=== PATIENT | female | born 1990 | race Caucasian/White ===

== ENCOUNTER 2020-06-25 17:48 | Emergency (ER) | payer BC ==
--- NOTE | 2020-06-25 18:17 | EDM.PDOC ---
ED HPI GENERAL MEDICAL PROBLEM - General Chief Complaint: Chest Pain Stated Complaint: CHEST PAIN Time Seen by Provider: 06/25/20 18:01 Source of Information: Reports: Patient, RN Notes Reviewed History Limitations: Reports: No Limitations - History of Present Illness INITIAL COMMENTS - FREE TEXT/NARRATIVE: Patient is a 30-year-old female who presents to the ED for her left-sided chest discomfort. She notes she has had pain in her left chest for the past 3 weeks. She has been to see her provider, Dr. Su at the [facility] 2 times for this. She states she was referred to PT, nothing much else was done of this. She has not had a EKG or any sort of imaging studies done. She does have a remote history of COVID-19 in April 2020, but is feeling well from this, and states it was a mild case. She does state that the chest pain seems to be worse today, and it radiates down her left arm. She states this is kind of a dull ache all the time with some stinging/sharp sensations. She notes that it seems to be worse in the evening, she is not noted anything that really makes this better. She has tried 1000 mg of Tylenol and 200 mg ibuprofen from time to time but nothing seems to really make it better. She states that the medications last for about 1/2-hour and then the pain is back. She states that movement does not seem to make the pain worse, nor does deep breathing. She does not think the PT is helping much either. Patient denies any other sick-like symptoms, fever/chills, cough/shortness of breath, nausea/vomiting/diarrhea. The patient further denies any early cardiac demise in her immediate family members. She states that she is in fairly decent health herself. Left Chest Pain Score (Numeric/FACES): 8 - Related Data Allergies Allergy/AdvReac Type Severity Reaction Status Date / Time No Known Allergies Allergy Verified 06/25/20 17:58 Home Meds: Home Meds . 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 ED EXAM, GENERAL - Physical Exam Exam: See Below Exam Limited By: No Limitations General Appearance: Alert, WD/WN, No Apparent Distress Respiratory/Chest: No Respiratory Distress, Lungs Clear, Normal Breath Sounds, No Accessory Muscle Use, Other (She does state that she has some mild tenderness to left chest around 3-4th rib; states this does somewhat reproduce the sensation she felt.) Cardiovascular: Normal Peripheral Pulses, Regular Rate, Rhythm, No Edema, No Murmur Extremities: Normal Inspection, Normal Range of Motion, Normal Capillary Refill Neurological: Alert, Oriented, Normal Cognition, No Motor/Sensory Deficits Psychiatric: Normal Affect, Normal Mood Skin Exam: Warm, Dry, Intact, Normal Color, No Rash #1 Interpretation EKG Date: 06/25/20 Time: 18:43 Rhythm: NSR Rate (Beats/Min): 97 [place]: Normal P-Wave: Present QRS: Normal ST-T: Normal QT: Normal Comparison: NA - No Prior EKG EKG Interpretation Comments: No obvious ischemia or acute ST changes noted, reviewed by myself and Dr. Roa. Course - Vital Signs Last Recorded V/S: Last Vital Signs Temp 98.0 F 06/25/20 17:56 Pulse 114 H 06/25/20 17:56 Resp 19 06/25/20 17:56 BP 139/84 06/25/20 17:56 Pulse Ox 100 06/25/20 17:56 - Orders/Labs/Meds Orders: Active Orders 24 hr Category Date Time Status EKG Documentation Completion [RC] STAT Care 06/25/20 18:09 Ordered Chest 2V [CR] Stat Exams 06/25/20 18:09 Ordered CBC WITH AUTO DIFF [HEME] Stat Lab 06/25/20 18:09 Ordered Potassium Chloride [Klor-Con M20] Med 06/25/20 19:05 Once 40 meq PO ONETIME ONE Medication Orders Potassium Chloride (Klor-Con M20) 40 meq PO ONETIME ONE Stop: 06/25/20 19:06 Labs: Laboratory Tests 06/25/20 06/25/20 Range/Units 18:27 18:27 WBC 10.80 H (3.98-10.04) K/mm3 RBC 4.94 (3.98-5.22) M/mm3 Hgb 12.5 (11.2-15.7) gm/dl Hct 39.7 (34.1-44.9) % MCV 80.4 (79.4-94.8) fl MCH 25.3 L (25.6-32.2) pg MCHC 31.5 L (32.2-35.5) g/dl RDW Std Deviation 43.1 (36.4-46.3) fL Plt Count 357 (182-369) K/mm3 MPV 9.6 (9.4-12.3) fl Neut % (Auto) 67.6 (34.0-71.1) % Lymph % (Auto) 22.4 (19.3-51.7) % [place] % (Auto) 7.9 (4.7-12.5) % Eos % (Auto) 1.4 (0.7-5.8) Baso % (Auto) 0.5 (0.1-1.2) % Neut # (Auto) 7.31 H (1.56-6.13) K/mm3 Lymph # (Auto) 2.42 (1.18-3.74) K/mm3 [place] # (Auto) 0.85 H (0.24-0.36) K/mm3 Eos # (Auto) 0.15 (0.04-0.36) K/mm3 Baso # (Auto) 0.05 (0.01-0.08) K/mm3 Sodium 138 (136-145) mEq/L Potassium 3.0 L (3.5-5.1) mEq/L Chloride 102 (98-107) mEq/L Carbon Dioxide 21 (21-32) mEq/L Anion Gap 18.0 H (5-15) BUN 7 (7-18) mg/dL Creatinine 0.9 (0.55-1.02) mg/dL Est Cr Clr Drug Dosing 74.23 mL/min Estimated GFR (MDRD) > 60 (>60) mL/min BUN/Creatinine Ratio 7.8 L (14-18) Glucose 115 H (74-106) mg/dL Calcium 8.9 (8.5-10.1) mg/dL Magnesium 1.9 (1.8-2.4) mg/dl Total Bilirubin 0.6 (0.2-1.0) mg/dL AST 10 L (15-37) U/L ALT 26 (14-59) U/L Alkaline Phosphatase 64 (46-116) U/L Troponin I < 0.017 (0.00-0.056) ng/mL Total Protein 8.1 (6.4-8.2) g/dl Albumin 3.4 (3.4-5.0) g/dl Globulin 4.7 gm/dL Albumin/Globulin Ratio 0.7 L (1-2) Meds: Medications Generic Name Dose Route Start Last Admin Trade Name Freq PRN Reason Stop Dose Admin Potassium Chloride 40 meq 06/25/20 19:05 Klor-Con M20 PO 06/25/20 19:06 ONETIME ONE - Re-Assessments/Exams Free Text/Narrative Re-Assessment/Exam: 06/25/20 18:16 Patient presents to the ED for evaluation of her chest pain. Have ordered EKG, chest x-ray, basic labs for evaluation. I do believe this could be costochondritis in nature. 06/25/20 19:06 EKG is done and demonstrates no obvious ST change or acute abnormalities. Patient's labs have been obtained and these are fairly unremarkable, troponin is undetectably low. CBC is good, metabolic panel shows a potassium level of 3.0. She will get 40 mEq p.o. for this. Chest x-ray was unremarkable. Will discharge home with general recommendations. Departure - Departure Time of Disposition: 19:07 Disposition: Home, Self-Care 01 Condition: Good Clinical Impression: Costochondral chest pain Instructions: Nonspecific Chest Pain, Adult, [id number] Referrals: Cassy Su MD [Primary Care Provider] - Forms: ED Department Discharge Additional Instructions: You were evaluated in the ER today for your chest pain. You had an EKG, chest x-ray, and labs taken today. All of which showed no sign of acute heart attack or myocardial infarction. Chest x-ray is also negative for any sort of acute abnormalities. Your potassium level was mildly low at 3.0, you were given a one-time dose of oral potassium in the ER for supplementation. Please go home and increase your dietary intake of this, foods such as bananas, potatoes, are high in potassium. Your chest pain is most likely due to costochondritis which is an inflammation of the nerve/rib lining. Management of this is to treat with at least 600 mg ibuprofen every 6 hours over the next week or so and see if this does not help improve your symptoms. Please return to the ER at any time if your symptoms change or worsen. Sepsis Event Note (ED) - Evaluation Sepsis Screening Result: No Definite Risk - Focused Exam Vital Signs: Vital Signs Temp Pulse Resp BP Pulse Ox 06/25/20 17:56 98.0 F 114 H 19 139/84 100 - My Orders Last 24 Hours: My Active Orders 06/25/20 18:09 EKG Documentation Completion [RC] STAT Chest 2V [CR] Stat CBC WITH AUTO DIFF [HEME] Stat 06/25/20 19:05 Potassium Chloride [Klor-Con M20] 40 meq PO ONETIME ONE - Assessment/Plan Last 24 Hours: My Active Orders 06/25/20 18:09 EKG Documentation Completion [RC] STAT Chest 2V [CR] Stat CBC WITH AUTO DIFF [HEME] Stat 06/25/20 19:05 Potassium Chloride [Klor-Con M20] 40 meq PO ONETIME ONE
[2020-06-25] MEDS ORDERED: Potassium Chloride 20 MEQ Tab.ER PO ONE (19:05)
--- NOTE | 2020-06-26 09:15 | CR ---
PROCEDURE INFORMATION: Exam: XR Chest, 2 Views Exam date and time: 06/25/2020 6:50 PM Age: 30 years old Clinical indication: Chest pain TECHNIQUE: Imaging protocol: XR of the chest Views: 2 views. COMPARISON: No relevant prior studies available. FINDINGS: Lungs: Unremarkable. No consolidation. Pleural space: Unremarkable. No pleural effusion. No pneumothorax. Heart/Mediastinum: Unremarkable. No cardiomegaly. Bones/joints: Unremarkable. IMPRESSION: No acute findings. Thank you for allowing us to participate in the care of your patient. Dictated and Authenticated by: Antony Peng MD 06/25/2020 8:03 PM Central Time ([place] & [place]) KERRY
== END 2020-06-25 19:27 | disposition home or self-care (01) ==
LOC: JD.ED 17:48
DX: R07.1 Chest pain on breathing (principal); J45.909 Unspecified asthma, uncomplicated
CPT/HCPCS: 36415; 71046; 80053; 83735; 84484; 85025; 93005; 99285; A9270; 93010; 99284